=== PATIENT | female | born 1980 | race Caucasian/White ===

== ENCOUNTER 2017-08-15 11:35 | Day surgery (SDC) | payer MEDICARE, MEDICAID ==
[2017-08-15 12:41] LABS: BASOPHILS 0.6 % (0-2); EOSINOPHILS 7.2 % (0-7); HEMATOCRIT 39.1 % (36.0-48.0); LYMPHOCYTES 27.6 % (15-50); MCH 30.7 pg (26.0-34.0); MCHC 33.2 g/dL (31.0-37.0); MCV 92.4 fL (80.0-100.0); MEAN PLATELET VOLUME 8.7 fL (7.4-10.4); MONOCYTES 9.6 % (2-11); PLATELET COUNT 314 10x3/uL (130-400); RBC 4.23 10x6/uL (4.00-5.40); RDW 13.5 % (11.5-14.5); WBC 8.1 10x3/uL (4.8-10.8)
[2017-08-15 13:07] LABS: ANION GAP 15.3 mmol/L (8-16); CALCIUM 10.5 mg/dL (8.5-10.1); CARBON DIOXIDE 27.9 mmol/L (21.0-32.0); CREATININE - SERUM 1.8 mg/dL (0.6-1.3); POTASSIUM - SERUM 4.2 mmol/L (3.5-5.1)
[2017-08-15] MEDS ORDERED: NUCYNTA ER100 MG PO (13:54)
[2017-08-15] MEDS ORDERED: ARAVA10 MG PO (13:54)
[2017-08-15] MEDS ORDERED: TRADJENTA5 MG PO (13:54)
[2017-08-15] MEDS ORDERED: MAXZIDE 75/501 TAB PO (13:55)
[2017-08-15] MEDS ORDERED: NEURONTIN600 MG PO (13:55)
[2017-08-15] MEDS ORDERED: METFORMIN HCL500 M1 PO (13:55)
[2017-08-15] MEDS ORDERED: OMEPRAZOLE20 M1 PO (13:56)
[2017-08-15] MEDS ORDERED: BUSPAR 15 MG TA15 MG PO (13:56)
[2017-08-15] MEDS ORDERED: ZANTAC300 MG PO (13:56)
[2017-08-15] MEDS ORDERED: CYCLOBENZAPRINE10 MG PO (13:56)
[2017-08-15] MEDS ORDERED: VITAMIN D250000 UNIT PO (13:57)
[2017-08-15] MEDS ORDERED: WELLBUTRIN SR150 MG PO (13:57)
[2017-08-15] MEDS ORDERED: LISINOPRIL10 MG PO (13:57)
[2017-08-15 14:06] VITALS: BP 100/73; BMI 27.0
--- NOTE | 2017-08-15 16:28 | NUR ---
1620 DISCHARGE INSTRUCTIONS COMPLETE. PT HAS NO QUESTIONS OR CONCERNS AT THIS TIME. ESCORTED OUT BY FARRAH KERNS.
--- NOTE | 2017-08-16 09:09 | OP ---
PATIENT NAME: ELSY DEWEY MEDICAL RECORD: [id number] :80 LOCATION:[facility] ADMISSION DATE: SURGEON: CHRISTIAN BAUM DO DATE OF OPERATION: 08/15/2017 PROCEDURE: Colonoscopy with polypectomy and biopsy. INDICATIONS FOR PROCEDURE: Hematochezia, generalized abdominal pain, change in bowels. SCOPE: Olympus video pediatric colonoscope. MEDICATIONS: Propofol 350 mg IV per anesthesia. WITHDRAWAL TIME: 9 minutes. ESTIMATED BLOOD LOSS: Minimal. COMPLICATIONS: None. FINDINGS: Informed consent was given. The patient was made comfortable with the above medication. After reaching an adequate level of sedation by slow IV push, the patient was placed on her left side. A digital rectal examination was performed and revealed a thrombosed external hemorrhoid without bleeding. The endoscope was then advanced under direct visualization through the rectum to the terminal ileum. The scope was slowly withdrawn and mucosa was carefully examined. The prep quality was good other than the cecum and proximal ascending colon where stool was present. There was 1 polyp visualized on this examination. It was located in the rectum and appeared to be an inflammatory type polyp. It had an ulcerated edge and could be source of bleeding as well as the hemorrhoids. At the conclusion of the procedure, the polyp was removed using a hot snare. It was collected in 1 piece and completely retrieved. The polyp measured approximately 7 mm in diameter. There were no diverticula visualized on today's examination. The visualized mucosa appeared normal other than in the rectum where there was the appearance of some granularity and loss of vascular pattern. No ulcerations were seen, but mucosa could be seen adhesing the areas, which had an erythematous and granular appearance compared to surrounding mucosa. This raises the question of possible proctitis. Random biopsies were taken in the rectum to submit for histology. Random biopsies were also taken throughout normal mucosa within the colon itself to submit for histology and to rule out microscopic colitis. Retroflexion was performed in the rectum with visualization of small nonbleeding internal hemorrhoids. The endoscope was then un-retroflexed and withdrawn from the patient. The patient tolerated the procedure well and there were no complications. IMPRESSION: 1. A single polyp removed from the rectum on today's examination, which appear to be an inflammatory polyp. 2. Small internal and external hemorrhoids without bleeding. 3. Possible proctitis, biopsies pending. PLAN AND RECOMMENDATIONS: 1. Discharge home when recovery parameters are met. 2. Follow up biopsy specimen results. 3. High fiber diet. OPERATIVE REPORT [id number] ELSY DEWEY 4. Supplementation of the diet with Metamucil or other psyllium husk 2 tablespoons daily. 5. We will give a trial of dicyclomine 20 mg up to twice daily as needed for loose stools or abdominal pain. 6. Further recommendations and treatment will be initiated if indicated based on biopsy results. 7. Recall colonoscopy will be dependent on results of the polyp, which was removed on today's examination. TRANSINT:[id number] Voice Confirmation ID: [id number] DOCUMENT ID: [id number] CHRISTIAN BAUM DO at 0909 CC: [id number] DICTATION DATE: 08/15/17 1532 MACHINE WOODWORKING SANDER: 08/15/[address] [facility] 08/15/17 [id number] [place] [address]
== END 2017-08-15 16:25 | disposition home or self-care (01) ==
LOC: D.OPS 11:35
PROVIDERS: Anesthesiology
DX: K92.1 Melena (principal); R10.84 Generalized abdominal pain; R19.4 Change in bowel habit; K63.5 Polyp of colon; I10 Essential (primary) hypertension; K21.9 Gastro-esophageal reflux disease without esophagitis; G40.909 Epilepsy, unspecified, not intractable, without status epilepticus; E11.9 Type 2 diabetes mellitus without complications; Z01.812 Encounter for preprocedural laboratory examination; K64.4 Residual hemorrhoidal skin tags; K64.8 Other hemorrhoids

== ENCOUNTER 2017-09-12 10:14 | Day surgery (SDC) | payer MEDICARE, MEDICAID ==
[~2017-09-12] VITALS: Ht 162.6 cm; Wt 72.7 kg
[~2017-09-12 10:14] MED LIST: ARAVA10 MG PO; BUSPAR 15 MG TA15 MG PO; CYCLOBENZAPRINE10 MG PO; LISINOPRIL10 MG PO; MAXZIDE 75/501 TAB PO; METFORMIN HCL500 M1 PO; NEURONTIN600 MG PO; NUCYNTA ER100 MG PO; OMEPRAZOLE20 M1 PO; TRADJENTA5 MG PO; VITAMIN D250000 UNIT PO; WELLBUTRIN SR150 MG PO; ZANTAC300 MG PO
[2017-09-12] MEDS ORDERED: ZOFRAN4 MG PO (11:24)
[2017-09-12 11:26] LABS: HEMOGLOBIN 10.8 g/dL (12-16); MCHC 31.8 g/dL (31.0-37.0); MCV 97.7 fL (80.0-100.0); MEAN PLATELET VOLUME 8.6 fL (7.4-10.4); RBC 3.48 10x6/uL (4.00-5.40); RDW 14.7 % (11.5-14.5); WBC 6.6 10x3/uL (4.8-10.8)
[2017-09-12 11:27] VITALS: BP 100/69; Ht 162.6 cm; Wt 72.7 kg
[2017-09-12 11:48] LABS: ANION GAP 14.2 mmol/L (8-16); CALCIUM 9.5 mg/dL (8.5-10.1); CARBON DIOXIDE 28.4 mmol/L (21.0-32.0); CREATININE - SERUM 1.4 mg/dL (0.6-1.3); POTASSIUM - SERUM 4.6 mmol/L (3.5-5.1)
--- NOTE | 2017-09-12 13:20 | NUR ---
PT REC'D TO ROOM VIA STRETCHER. ALERT, ORIENTED.
--- NOTE | 2017-09-12 14:00 | NUR ---
TOLERATED FULL LIQ DIET.
--- NOTE | 2017-09-12 14:35 | NUR ---
IV D/C'D CATH INTACT. D/C INSTRUCTIONS EXPLAINED TO PT. VOICED UNDERSTANDING. COPIES OF ALL GIVEN.
--- NOTE | 2017-09-12 14:40 | NUR ---
D/C'D HOME VIA W/C TO PRIVATE CAR.
--- NOTE | 2017-09-13 08:33 | OP ---
PATIENT NAME: ELSY DEWEY MEDICAL RECORD: [id number] :80 LOCATION:[facility] ADMISSION DATE: SURGEON: CHRISTIAN BAUM DO DATE OF OPERATION: 09/12/2017 PROCEDURE: EGD with biopsies. INDICATIONS FOR PROCEDURE: Heartburn, dysphagia, nausea. SCOPE: Olympus video gastroscope. MEDICATIONS: Propofol 150 mg IV per anesthesia. ESTIMATED BLOOD LOSS: Minimal. COMPLICATIONS: None. FINDINGS: Informed consent was given. The patient was made comfortable with the above medication. After reaching an adequate level of sedation by slow IV push, the patient was placed on her left side. The endoscope was then advanced under direct visualization through the mouth to the second portion of the duodenum. The upper, middle, and lower thirds of the esophagus appeared normal. Random biopsies were taken in 4 quadrants in the mid esophagus to rule out eosinophilic esophagitis as the patient has been experiencing some dysphagia. At the GE junction, there was very mild evidence of LA class A reflux-induced esophagitis. The endoscope was advanced beyond the GE junction into the stomach and retroflexed to view the cardia, where a small sliding hiatal hernia was present. Throughout the fundus and body of the stomach as well as the antrum, there were multiple benign-appearing fundic gland type polyps. A biopsy was taken of one of these polyps to confirm this diagnosis. In the antrum and prepyloric region, there was some streaky erythema and granularity consistent with possible gastritis. Random biopsies were taken to submit for histology and to rule out H. pylori. The endoscope was advanced beyond the pylorus into the duodenum where the bulb and second portion of the duodenum appeared normal. Random biopsies were taken to submit for histology. The endoscope was then withdrawn from the patient. The patient tolerated the procedure well and there were no complications. IMPRESSION: 1. Mild LA class A reflux-induced esophagitis. 2. Small sliding hiatal hernia. 3. Multiple gastric polyps, which were benign appearing and fundic gland type polyps. 4. Possible gastritis. PLAN AND RECOMMENDATIONS: 1. Discharge home when recovery parameters are met. 2. Follow up biopsy specimen results. 3. Continue current medications and diet. 4. Further workup consideration to include a right upper quadrant ultrasound and/or PIPIDA scan. Also, consider gastric emptying study regarding the nausea. The patient's symptoms actually improved with eating, so I suspect that this is not gallbladder dysfunction or gastroparesis, but these may need to be ruled out and further workup if symptoms persist or worsen. OPERATIVE REPORT [id number] ELSY DEWEY 5. Continue current medications including PPI daily and H2 andrey daily. 6. Consider manometry study regarding the dysphagia. This could be related to her underlying conditions, which are still being worked up including autoimmune conditions. There were no strictures identified on today's examination. 7. Repeat EGD as needed for symptoms. TRANSINT:[id number] Voice Confirmation ID: [id number] DOCUMENT ID: [id number] CHRISTIAN BAUM DO at 0833 CC: [id number] DICTATION DATE: 09/12/17 1309 WOOD ROUTER HAND: 09/12/172005 [facility] 09/12/17 [id number] [place] [address]
== END 2017-09-12 16:49 | disposition home or self-care (01) ==
LOC: D.OPS 10:14
PROVIDERS: Anesthesiology
DX: R13.10 Dysphagia, unspecified (principal); R12 Heartburn; K44.9 Diaphragmatic hernia without obstruction or gangrene; K31.7 Polyp of stomach and duodenum; R11.0 Nausea; Z01.812 Encounter for preprocedural laboratory examination

== ENCOUNTER 2018-08-28 08:43 | Day surgery (SDC) | payer MEDICARE, MEDICAID ==
[~2018-08-28] VITALS: Ht 162.6 cm; Wt 67.7 kg
--- NOTE | ~2018-08-28 | OP ---
PATIENT NAME: ELSY DEWEY MEDICAL RECORD: [id number] :80 LOCATION:[facility] ADMISSION DATE: SURGEON: CHRISTIAN BAUM DO DATE OF OPERATION: 08/28/2018 PROCEDURE: Colonoscopy. INDICATIONS FOR PROCEDURE: Fecal incontinence, hematochezia, change in bowel habits. SCOPE: Olympus video pediatric colonoscope. MEDICATIONS: Propofol 380 mg IV per anesthesia. WITHDRAWAL TIME: 9 minutes. ESTIMATED BLOOD LOSS: Minimal. COMPLICATIONS: None. FINDINGS: Informed consent was given. The patient was made comfortable with the above medication. After reaching an adequate level of sedation by slow IV push, the patient was placed on her left side. A digital rectal examination was performed and was normal. The endoscope was then advanced under direct visualization through the rectum to the cecum and terminal ileum. The endoscope was slowly withdrawn and mucosa was carefully examined. The prep quality was fair. There was a single diverticulum visualized in the descending colon. Retroflexion was performed in the rectum with visualization of grade I internal hemorrhoids without bleeding. The terminal ileum appeared normal. The entire colon mucosa appeared normal, but there was some thick stool that appeared to have some mucus present. Random biopsies were taken throughout the colon to rule out microscopic colitis. Stool was collected to submit for stool studies to rule out infectious colitis. The endoscope was withdrawn from the patient. The patient tolerated the procedure well and there were no complications. IMPRESSION: Normal colonoscopy to the terminal ileum, other than some thick stool that appears to have some mucus present. Stool was collected and random biopsies were taken. PLAN AND RECOMMENDATIONS: 1. Discharge home when recovery parameters are met. 2. Follow up biopsy specimen results. 3. High fiber diet. 4. Continue current medications while awaiting biopsy results. 5. Okay to use [id number]-two-[id number] Imodium in the evening if diarrhea persists. 6. Can also consider cholestyramine 4 grams p.o. q.h.s. or evening time. 7. Continue the workup of autoimmune condition. TRANSINT:[id number] Voice Confirmation ID: [id number] DOCUMENT ID: [id number] OPERATIVE REPORT [id number] ELSY DEWEY CHRISTIAN BAUM DO at 1739 CC: [id number] DICTATION DATE: 08/28/188 FURNACE FIRER: 08/28/[address] [facility] 08/28/18 [facility] [address] [place] [address]
[~2018-08-28 08:43] MED LIST changes: +ZOFRAN4 MG PO
[2018-08-28 09:15] LABS: BASOPHILS 0.7 % (0-2); EOSINOPHILS 10.7 % (0-7); HEMATOCRIT 37.2 % (36.0-48.0); HEMOGLOBIN 12.6 g/dL (12-16); IMMATURE GRANULOCYTES 0.5 % (0-5); LYMPHOCYTES 31.8 % (15-50); MCH 31.6 pg (26.0-34.0); MCHC 33.9 g/dL (31.0-37.0); MCV 93.2 fL (80.0-100.0); MEAN PLATELET VOLUME 8.4 fL (7.4-10.4); MONOCYTES 10.4 % (2-11); NEUTROPHILS 45.9 % (40-80); PLATELET COUNT 329 10x3/uL (130-400); RBC 3.99 10x6/uL (4.00-5.40); RDW 13.8 % (11.5-14.5); WBC 5.8 10x3/uL (4.8-10.8)
[2018-08-28 09:23] LABS: CALCIUM 10.9 mg/dL (8.5-10.1); CARBON DIOXIDE 29.6 mmol/L (21.0-32.0); CREATININE - SERUM 1.6 mg/dL (0.6-1.3); POTASSIUM - SERUM 4.6 mmol/L (3.5-5.1)
[2018-08-28 09:24] LABS: APTT 25.9 SECONDS (22.8-39.4); INR 0.93 (0.85-1.17); PROTIME 12.1 SECONDS (11.6-15.0)
[2018-08-28 09:27] LABS: HCG SERUM NEGATIVE (NEGATIVE)
[2018-08-28] MEDS ORDERED: PLAQUENIL 200200 MG PO (09:30)
[2018-08-28 09:42] VITALS: BP 105/71; Ht 162.6 cm; Wt 67.7 kg
[2018-09-01 14:26] LABS: OVA + PARASITE EXAM Final report (())
== END 2018-08-28 12:11 | disposition home or self-care (01) ==
LOC: D.OPS 08:43
PROVIDERS: Anesthesiology; Internal Medicine Gastroenterology
DX: K52.89 Other specified noninfective gastroenteritis and colitis (principal); K92.1 Melena; R15.9 Full incontinence of feces; Z01.812 Encounter for preprocedural laboratory examination

== ENCOUNTER 2019-06-05 12:00 | Outpatient (CLI) | payer MEDICARE, MEDICAID ==
[2018-08-28 09:42] VITALS: BMI 25.6
[~2019-06-05 12:00] MED LIST changes: +PLAQUENIL 200200 MG PO
== END 2019-06-05 12:30 | disposition home or self-care (01) ==
LOC: D.MAMMO 12:00
PROVIDERS: ATTEND Family Medicine
DX: Z12.31 Encounter for screening mammogram for malignant neoplasm of breast (principal)

== ENCOUNTER 2019-07-05 08:00 | Outpatient (CLI) | payer MEDICARE, MEDICAID ==
[2018-08-28 09:42] VITALS: BMI 25.6
== END 2019-07-05 23:59 | disposition home or self-care (01) ==
LOC: D.MAMMO 08:00
PROVIDERS: ATTEND Family Medicine
DX: R92.8 Other abnormal and inconclusive findings on diagnostic imaging of breast (principal)

== ENCOUNTER → 2019-08-15 08:33 | Outpatient (CLI) | payer MEDICARE, MEDICAID ==
[2018-08-28 09:42] VITALS: BMI 25.6
--- NOTE | 2019-08-17 09:07 | EC ---
PATIENT:ELSY DEWEY TERRIE DATE OF SERVICE: 08/15/19 SEX: F MEDICAL RECORD: [id number] DATE OF : 80 [facility] AGE OF PATIENT: 39 ADMISSION DATE: 08/15/19 REFERRING PHYSICIAN: INTERPRETING PHYSICIAN: JEREMY MENDIETA MD ECHOCARDIOGRAM REPORT ECHO CHARGES 4 ECHO COMPLETE Date: 08/15/19 CLINICAL DIAGNOSIS: HEART MURMUR PALPITATIONS/ TACHYCARDIA ECHOCARDIOGRAPHIC MEASUREMENTS (adult normal given) AC root (d.<3.7cm) 3.0 cm LV Septum d (<1.2 cm> 1.1 cm Valve Excursion 1.5 cm LV Septum (systole) 1.3 cm Left Atria (s.<4.0cm> 3.2 cm LVPW d(<1.2cm) 1.1 cm RV (d.<2.3cm) 3.4 cm LVPW (sytole) 1.5 cm LV diastole(<5.6CM) 4.0 cm MV E-F(>70mm/sec) cm LV systole 2.4 cm LVOT Diameter 2.1 cm MV exc.(>10mm) 1.3 cm Est.ejection fraction (50-75%) % DOPPLER: LVIT cm/sec A 71.0 cm/sec E 60.0 cm/sec LA cm/sec RVSP 24 mmHg LVOT 101 cm/sec AOP1/2T m/s Asc. Ao 137 cm/sec RVOT 80 cm/sec RA cm/sec PA 101 cm/sec AV Gradient Peak 7.49 mmHg AV Mean 4.17 mmHg AV Area 2.8 cm MV Gradient Peak 3.27 mmHg MV Mean 1.58 mmHg MV Area cm COMMENTS: Maintenance Analyst: 2 ALBINA CHILD Office Support: 3 Dr. Granados TAPE# PACS Pericardial Effusion N DATE OF SERVICE: Adequate 2D, color flow imaging, spectral Doppler, and M-Mode No LVH. LV internal dimension is normal. Wall motion is normal. EF is greater than or equal to 55%. Aortic valve is tricuspid. No source of stenosis by Doppler interrogation. Left atrium normal at 3.2 cm. Mitral valve shows no prolapse. Trace MR. Right-sided chambers are grossly normal. Trace TR. TRANSINT:[id number] Voice Confirmation ID: [id number] DOCUMENT ID: [id number] ECHOCARDIOGRAM REPORT [id number] ELSY DEWEY GREGORY A MD at 0907 CC: [id number] DICTATION DATE: 08/16/19 1344 DATA INTEGRITY CONSULTANT: 08/16/19 1415 [facility] CLI 08/15/19 [id number] [place] [address]
== END | disposition home or self-care (01) ==
LOC: D.HCCECHO 08:33
PROVIDERS: ATTEND Internal Medicine Interventional Cardiology
DX: R01.1 Cardiac murmur, unspecified (principal)